=== PATIENT | female | born 1970 | race Caucasian/White ===

== ENCOUNTER 2017-08-18 17:24 | Emergency (ER) | payer OTHER, MEDICARE ==
[~2017-08-18] VITALS: Ht 152.4 cm; Wt 75.0 kg
[2017-08-18] VITALS (7 sets, daily range): BP systolic 149–188; BP diastolic 89–108; PULSE 105–122; RESP 14–20; TEMP 98.4; O2SAT 92–98
[2017-08-18] MEDS ORDERED: OMEP20TA93 PO ×2 (17:50→20:27)
[2017-08-18] MEDS ORDERED: HYDROmorphone HCL PF 1 MG/ML VIAL IV PUSH ONE (18:15)
[2017-08-18] MEDS ORDERED: ONDANSETRON HCL 4 MG/2 ML VIAL IM ONE (18:15)
[2017-08-18] MEDS ORDERED: SODIUM CHLORIDE 0.9% FLUSH 10 ML FLUSH IVF PRN (18:15)
[2017-08-18] MEDS ORDERED: SODIUM CHLOR 0.9% 1000 ML INJ 1,000 ML IV SCH (18:15)
[2017-08-18] MEDS ORDERED: ONDANSETRON ODT 4 MG TAB PO ONE (18:45)
[2017-08-18] MEDS ORDERED: HYDROmorphone HCL PF 2 MG/ML VIAL IV PUSH ONE (18:45)
--- NOTE | 2017-08-18 18:59 | PD ---
HPI Chief Complaint: GI Complaint Time Seen by Provider: 17:52 Travel History International Travel<30 days: No Contact w/Intl Traveler<30days: No Traveled to known affect area: No History of Present Illness HPI 47 YO F with PMH of GERD, cyclical vomiting syndrome, anxiety, depression presents to the ED for evaluation of 2 day history of epigastric abdominal pain , nausea and vomiting. Pain is rated 10/10, sharp, no alleviating or exacerbating factors reported. Pain radiates to the back. Gradual onset. Patient states this pain is similar to previous episodes of cyclical vomiting syndrome. She does not have any antiemetics at home. She denies chest pain, palpitations, shortness of breath, changes in bowel habits, dysuria. Mother is at bedside and states the patient's been seen by several doctors in the area. She states that the patient recently underwent Botox injections of the esophagus. Neither the patient or her mother is able to give a detailed description or definite diagnosis for the patient's condition. PFSH Past Medical History Anxiety: Yes Depression: Yes GERD: Yes ?: Not Past Surgical History Abdominal Surgery: Yes Hysterectomy: Yes Other Surgery: Yes (breast reduction) Social History Alcohol Use: No Tobacco Use: No Substance Use: No Allergies-Medications (Allergen,Severity, Reaction): Coded Allergies: amoxicillin (Verified Allergy, Unknown, 08/18/17) lidocaine (Verified Allergy, Unknown, 08/18/17) Reported Meds & Prescriptions Reported Meds & Active Scripts Active Reported Miralax Powder (Polyethylene Glycol 3350 Powder) 17 Gm Powd 17 Gm PO DAILY Mix and dissolve one measuring cap-ful (17 grams) in water or juice. Celexa (Citalopram Hydrobromide) 10 Mg Tab 10 Mg PO DAILY Vitamin D3 (Cholecalciferol) 1,000 Unit Tab 1,000 Units PO DAILY Clozapine 100 Mg Tab 100 Mg PO TID Docusate Sodium 100 Mg Cap 100 Mg PO BID PRN Citalopram (Citalopram Hydrobromide) 20 Mg Tab 20 Mg PO DAILY Omeprazole 20 Mg Tab 20 Mg PO DAILY Review of Systems Except as stated in HPI: all other systems reviewed are Neg Physical Exam Narrative GENERAL: Well-nourished, well-developed ill-appearing white female no acute distress. SKIN: Focused skin assessment warm/dry. HEAD: Normocephalic. EYES: No scleral icterus. No injection or drainage. NECK: Supple, trachea midline. No JVD or lymphadenopathy. CARDIOVASCULAR: Regular rate and rhythm without murmurs, gallops, or rubs. RESPIRATORY: Breath sounds equal bilaterally. No accessory muscle use. GASTROINTESTINAL: Abdomen soft, nondistended. No palpable hepatosplenomegaly. Tender to palpation in the epigastric area. Active bowel sounds. MUSCULOSKELETAL: No cyanosis, or edema. BACK: Nontender without obvious deformity. No CVA tenderness. Data Data Last Documented VS Vital Signs Date Time Temp Pulse Resp B/P (MAP) Pulse Ox O2 Delivery O2 Flow Rate FiO2 08/19/17 02:34 08/19/17 02:20 107 16 98 Room Air 08/18/17 17:30 98.4 Orders Orders Complete Blood Count With Diff (08/18/17 18:15) Comprehensive Metabolic Panel (08/18/17 18:15) Lipase (08/18/17 18:15) Prothrombin Time / Inr (Pt) (08/18/17 18:15) Act Partial Throm Time (Ptt) (08/18/17 18:15) Alcohol (Ethanol) (08/18/17 18:15) Urinalysis - C+S If Indicated (08/18/17 18:15) Type And Screen (08/18/17 18:15) Ecg Monitoring (08/18/17 18:15) Iv Access Insert/Monitor (08/18/17 18:15) Oximetry (08/18/17 18:15) Sodium Chlor 0.9% 1000 Ml Inj (Ns 1000 M (08/18/17 18:15) Sodium Chloride 0.9% Flush (Ns Flush) (08/18/17 18:15) Electrocardiogram (08/18/17 ) Ammonia (08/18/17 18:15) Drug Screen, Random Urine (08/18/17 18:22) Troponin I (08/18/17 19:55) Ckmb (Isoenzyme) Profile (08/18/17 19:55) Lactic Acid (08/18/17 20:24) CKMB (08/18/17 18:45) CKMB% (08/18/17 18:45) Sodium Chlor 0.9% 1000 Ml Inj (Ns 1000 M (08/18/17 21:15) Orthostatic Vital Signs (08/18/17 22:02) Sodium Chlor 0.9% 1000 Ml Inj (Ns 1000 M (08/18/17 22:45) Metoclopramide Inj (Reglan Inj) (08/18/17 22:45) Lorazepam Inj (Ativan Inj) (08/19/17 00:45) Clozapine (Clozaril) (08/19/17 00:45) Ed Discharge Order (08/19/17 02:31) Labs Laboratory Tests Test 08/18/17 18:22 08/18/17 18:45 08/18/17 21:08 Urine Opiates Screen NEG Urine Barbiturates Screen NEG Urine Amphetamines Screen NEG Urine Benzodiazepines Screen NEG Urine Cocaine Screen NEG Urine Cannabinoids Screen NEG White Blood Count 12.3 TH/MM3 Red Blood Count 5.49 MIL/MM3 Hemoglobin 14.6 GM/DL Hematocrit 43.9 % Mean Corpuscular Volume 80.0 FL Mean Corpuscular Hemoglobin 26.7 PG Mean Corpuscular Hemoglobin Concent 33.3 % Red Cell Distribution Width 14.2 % Platelet Count 330 TH/MM3 Mean Platelet Volume 9.1 FL Neutrophils (%) (Auto) 86.1 % Lymphocytes (%) (Auto) 8.2 % Monocytes (%) (Auto) 5.2 % Eosinophils (%) (Auto) 0.0 % Basophils (%) (Auto) 0.5 % Neutrophils # (Auto) 10.6 TH/MM3 Lymphocytes # (Auto) 1.0 TH/MM3 Monocytes # (Auto) 0.6 TH/MM3 Eosinophils # (Auto) 0.0 TH/MM3 Basophils # (Auto) 0.1 TH/MM3 CBC Comment DIFF FINAL Differential Comment Prothrombin Time 10.6 SEC Prothromb Time International Ratio 1.0 RATIO Activated Partial Thromboplast Time 23.1 SEC Urine Color YELLOW Urine Turbidity TURBID Urine pH 8.0 Urine Specific [place] 1.019 Urine Protein 100 mg/dL Urine Glucose (UA) 50 mg/dL Urine Ketones 20 mg/dL Urine Occult Blood NEG Urine Nitrite NEG Urine Bilirubin NEG Urine Urobilinogen LESS THAN 2 mg/dL Urine Leukocyte Esterase NEG Urine Amorphous Sediment MOD Urine Hyaline Casts 6 /lpf Urine Granular Casts 6 /lpf Urine Mucus MOD /lpf Microscopic Urinalysis Comment CULT NOT INDICATED Blood Urea Nitrogen 16 MG/DL Creatinine 1.34 MG/DL Random Glucose 194 MG/DL Total Protein 8.6 GM/DL Albumin 4.5 GM/DL Calcium Level 11.1 MG/DL Alkaline Phosphatase 160 U/L Aspartate Amino Transf (AST/SGOT) 29 U/L Alanine Aminotransferase (ALT/SGPT) 27 U/L Total Bilirubin 0.5 MG/DL Sodium Level 142 MEQ/L Potassium Level 3.5 MEQ/L Chloride Level 103 MEQ/L Carbon Dioxide Level 27.7 MEQ/L Anion Gap 11 MEQ/L Estimat Glomerular Filtration Rate 42 ML/MIN Ammonia 21 MCMOL/L Total Creatine Kinase 1172 U/L Creatine Kinase MB LESS THAN 0.5 NG/ML Creatine Kinase MB % 0.0 % Troponin I LESS THAN 0.02 NG/ML Lipase 83 U/L Ethyl Alcohol Level LESS THAN 3 MG/DL Lactic Acid Level 1.0 mmol/L MDM Medical Decision Making Medical Screen Exam Complete: Yes Emergency Medical Condition: Yes Differential Diagnosis GERD versus cyclical vomiting versus GI bleed versus esophageal varices versus dehydration versus anemia versus metabolic derangement versus other Narrative Course 47-year-old female with PMH of GERD, cyclical vomiting presents the ED for evaluation of nausea, vomiting, epigastric pain times 24 hours. Symptoms similar to previous episodes. The patient is tachycardic and hypertensive on presentation. On exam she has some epigastric tenderness and is retching. IV was established. She was administered 2 L normal saline, 1 mg Dilaudid, 4 mg ODT Zofran. I reviewed [facility]. Patient has no narcotic prescriptions in the last year. EKG rate 107, sinus tachycardia. AR interval 123, QRS 97, QTc 333 ms. Normal axis. No acute ST changes. Reviewed by Dr. Macias. Cardiac enzymes negative x1. CBC: WBC 12.3. Hemoglobin 14.6. INR: 1.0. CMP: BUN 16, creatinine 1.34. Glucose 194. Calcium 11.1. CK 1172. UA: No culture indicated. Tox screen: Negative. Alcohol less than 3. No further episodes of vomiting while in the ED. Patient remains tachycardic and hypertensive. Discussed the case with Dr. Macias. He recommended additional liter of fluid. Patient signed out to Dr. Macias at end of shift. Please see his note for disposition. [facility] Point of Care Internal Pos. & Neg. Controls: Passed Gastric Specimen Occult Blood: Positive Diagnosis Primary Impression: Cyclical vomiting with nausea Qualified Codes: G43.A0 - Cyclical vomiting, not intractable Referrals: [facility] Additional Instructions: Rest, hydrate. Eat a bland diet for the next few days and gradually reintroduce new foods. Follow up with the [facility] for further evaluation. Return to the ED for any urgent or emergent medical condition. Med/Other Pt SpecificInfo: Prescription(s) given Disposition: 01 DISCHARGE HOME Condition: Stable Molly Mirza Aug 18, 2017 18:59
[2017-08-18] MEDS ORDERED: METOCLOPRAMIDE HCL 10 MG/2 ML VIAL IV PUSH ONE (19:00)
[2017-08-18 19:01] LABS: AUTOMATED NEUTROPHIL # 10.6 TH/MM3 (1.8-7.7); BASOPHIL # 0.1 TH/MM3 (0-0.2); BASOPHIL % 0.5 % (0.0-2.0); HEMATOCRIT 43.9 % (35.0-46.0); HEMOGLOBIN 14.6 GM/DL (11.6-15.3); LYMPH % 8.2 % (9.0-44.0); MEAN CORPUSCULAR HEMOGLOBIN 26.7 PG (27.0-34.0); MEAN CORPUSCULAR HGB CONC 33.3 % (32.0-36.0); MEAN PLATELET VOLUME 9.1 FL (7.0-11.0); MONO % 5.2 % (0.0-8.0); MONOCYTE # 0.6 TH/MM3 (0-0.9); NEUT % 86.1 % (16.0-70.0); PLATELET COUNT 330 TH/MM3 (150-450); RED BLOOD COUNT 5.49 MIL/MM3 (4.00-5.30); RED CELL DISTRIBUTION WIDTH 14.2 % (11.6-17.2); WHITE BLOOD COUNT 12.3 TH/MM3 (4.0-11.0)
[2017-08-18 19:10] LABS: PROTHROMBIN TIME - PATIENT 10.6 SEC (9.8-11.6)
[2017-08-18 19:16] LABS: ALBUMIN 4.5 GM/DL (3.4-5.0); AST (GOT) 29 U/L (15-37); BICARBONATE 27.7 MEQ/L (21.0-32.0); BLOOD UREA NITROGEN 16 MG/DL (7-18); CALCIUM 11.1 MG/DL (8.5-10.1); CHLORIDE 103 MEQ/L (98-107); CREATININE 1.34 MG/DL (0.50-1.00); GLOMERULAR FILTRATION RATE 42 ML/MIN (>89); GLUCOSE,RANDOM 194 MG/DL (74-106); SODIUM (NA) 142 MEQ/L (136-145)
[2017-08-18 19:17] LABS: ALT (GPT) 27 U/L (10-53)
[2017-08-18 19:19] LABS: ALKALINE PHOSPHATASE 160 U/L (45-117); TOTAL BILIRUBIN ADULT 0.5 MG/DL (0.2-1.0); TOTAL PROTEIN 8.6 GM/DL (6.4-8.2)
[2017-08-18 19:34] LABS: AMORPHOUS SEDIMENT, URINE MOD; BILIRUBIN, URINE NEG (NEG); BLOOD, URINE NEG (NEG); GLUCOSE,URINE 50 mg/dL (NEG); HYALINE CAST, URINE 6 /lpf (RARE); KETONE, URINE 20 mg/dL (NEG); MUCUS URINE MOD /lpf (OCC); NITRITE,URINE NEG (NEG); URINE LEUKOCYTE ESTERASE NEG (NEG)
[2017-08-18 19:38] LABS: URINE COLOR YELLOW (YELLW/STRAW)
[2017-08-18] MEDS ORDERED: CLOZ100T3 PO (20:27)
[2017-08-18] MEDS ORDERED: DOCU100C15 PO (20:27)
[2017-08-18] MEDS ORDERED: VITA100018 PO (20:27)
[2017-08-18] MEDS ORDERED: CITA20TA4 PO (20:27)
[2017-08-18] MEDS ORDERED: MIRA3350 PO (20:27)
[2017-08-18] MEDS ORDERED: CELE10TA PO (20:27)
[2017-08-18 20:53] LABS: TROPONIN I LESS THAN 0.02 NG/ML (0.02-0.05)
[2017-08-18] MEDS ORDERED: SODIUM CHLOR 0.9% 1000 ML INJ 1,000 ML IV ONE ×2 (21:15→22:45)
[2017-08-18] MEDS ORDERED: METOCLOPRAMIDE INJ 10 MG in SODIUM CHLORIDE 0.9% INJ 50 ML IV ONE (22:45)
[2017-08-19] MEDS ORDERED: LORazepam 2 MG/ML VIAL IV PUSH ONE (00:45)
[2017-08-19] MEDS ORDERED: cloZAPine 100 MG TAB PO ONE (00:45)
[2017-08-19 00:51] VITALS: BP 182/91; PULSE 110; RESP 20; O2SAT 95
[2017-08-19 02:20] VITALS: BP 133/77; PULSE 107; RESP 16; O2SAT 98
--- NOTE | 2017-08-19 17:45 | EKG ---
Date Performed: 08/18/2017 Time Performed: 19:09:21 PTAGE: 47 years EKG: SINUS TACHYCARDIA NONSPECIFIC ST & T-WAVE ABNORMALITY ABNORMAL RHYTHM ECG NO PREVIOUS TRACING DOCTOR: Cindi Carrington Interpretating Date/Time 08/19/2017 17:43:21
== END 2017-08-19 02:45 | disposition home or self-care (01) ==
LOC: NEPE 17:24
DX: G43.A0 Cyclical vomiting, in migraine, not intractable (principal); R10.13 Epigastric pain; R00.0 Tachycardia, unspecified; R03.0 Elevated blood-pressure reading, without diagnosis of hypertension; K21.9 Gastro-esophageal reflux disease without esophagitis; F32.9 Major depressive disorder, single episode, unspecified; F41.9 Anxiety disorder, unspecified; Z88.0 Allergy status to penicillin; Z79.899 Other long term (current) drug therapy
CPT/HCPCS: 80053; 80307; 81001; 82140; 82550; 82552; 83605; 83690; 84484; 85025; 85610; 85730; 86850; 86900; 86901; 93005; 96361; 96365; 96375; 99284; J2060; J2765; J7030

== ENCOUNTER 2017-08-19 11:44 | Emergency (ER) | payer OTHER, MEDICARE ==
[~2017-08-19] VITALS: Ht 165.1 cm; Wt 75.0 kg
[~2017-08-19 11:44] MED LIST: CELE10TA PO; CITA20TA4 PO; CLOZ100T3 PO; DOCU100C15 PO; MIRA3350 PO; OMEP20TA93 PO; VITA100018 PO
[2017-08-19 11:56] VITALS: BP 205/127; PULSE 118; RESP 15; TEMP 99.3; O2SAT 95
[2017-08-19 12:10] VITALS: BP 197/111
[2017-08-19] MEDS ORDERED: SODIUM CHLORIDE 0.9% FLUSH 10 ML FLUSH IV FLUSH PRN (13:15)
[2017-08-19] MEDS ORDERED: LORazepam 2 MG/ML VIAL IV PUSH ONE (13:15)
[2017-08-19] MEDS ORDERED: METOCLOPRAMIDE HCL 10 MG/2 ML VIAL IV PUSH ONE (13:15)
--- NOTE | 2017-08-19 13:16 | PD ---
HPI Chief Complaint: GI Complaint Time Seen by Provider: 13:01 Travel History International Travel<30 days: No Contact w/Intl Traveler<30days: No Traveled to known affect area: No History of Present Illness HPI Patient is a 47 year old female with a history of anxiety, depression and cyclical vomiting syndrome presents to the ER for evaluation of continued n/v since discharge from the ER last night. patient is accompanied by mother and patient defers her history to her mother. Mom states that this has been going on and off for years and [facility] but nothing seems to work and she has no unifying diagnosis. States that yesterday after leaving she continues to have intermittent nb/nb vomiting without abdominal pain. She has also been seen at other outside ER's and has had several CT scans and ultimately discharged from those ER's. Mom states she has not been happy with those ER's and thats why she came here. Patient is also on psychiatric medicines and mom is concerned because she hasn't been able to take these if it is ok to start them again. She does not know who prescribes the medications to her. Review of the records last night show she received multiple anti-emetic medications, multiple boluses of NS and ultimately discharged. No imaging obtained. PFSH Past Medical History Anxiety: Yes Depression: Yes GERD: Yes ?: Not Past Surgical History Abdominal Surgery: Yes Hysterectomy: Yes Other Surgery: Yes (breast reduction) Social History Alcohol Use: No Tobacco Use: No Substance Use: No Allergies-Medications (Allergen,Severity, Reaction): Coded Allergies: amoxicillin (Verified Allergy, Unknown, 08/18/17) lidocaine (Verified Allergy, Unknown, 08/18/17) Reported Meds & Prescriptions Reported Meds & Active Scripts Active Reported Miralax Powder (Polyethylene Glycol 3350 Powder) 17 Gm Powd 17 Gm PO DAILY Mix and dissolve one measuring cap-ful (17 grams) in water or juice. Celexa (Citalopram Hydrobromide) 10 Mg Tab 10 Mg PO DAILY Vitamin D3 (Cholecalciferol) 1,000 Unit Tab 1,000 Units PO DAILY Clozapine 100 Mg Tab 100 Mg PO TID Docusate Sodium 100 Mg Cap 100 Mg PO BID PRN Citalopram (Citalopram Hydrobromide) 20 Mg Tab 20 Mg PO DAILY Omeprazole 20 Mg Tab 20 Mg PO DAILY Review of Systems Except as stated in HPI: all other systems reviewed are Neg Physical Exam Narrative GENERAL: WD/WN Obese, in no obvious distress. I witnessed one small volume emesis in the ER. Non-bloody. SKIN: Warm and dry. HEAD: Atraumatic. Normocephalic. EYES: Pupils equal and round. No scleral icterus. No injection or drainage. ENT: No nasal bleeding or discharge. Mucous membranes pink and moist. NECK: Trachea midline. No JVD. CARDIOVASCULAR: Regular rate and rhythm. RESPIRATORY: No accessory muscle use. Clear to auscultation. Breath sounds equal bilaterally. GASTROINTESTINAL: Abdomen soft, non-tender, nondistended. Hepatic and splenic margins not palpable. MUSCULOSKELETAL: Extremities without clubbing, cyanosis, or edema. No obvious deformities. NEUROLOGICAL: Awake and alert. No obvious cranial nerve deficits. Motor grossly within normal limits. Five out of 5 muscle strength in the arms and legs. Normal speech. PSYCHIATRIC: Appropriate mood and affect; insight and judgment normal. Data Data Last Documented VS Vital Signs Date Time Temp Pulse Resp B/P (MAP) Pulse Ox O2 Delivery O2 Flow Rate FiO2 08/19/17 15:27 08/19/17 11:56 99.3 118 15 95 Orders Orders Iv Access Insert/Monitor (08/19/17 13:14) Ecg Monitoring (08/19/17 13:14) Oximetry (08/19/17 13:14) Sodium Chloride 0.9% Flush (Ns Flush) (08/19/17 13:15) Complete Blood Count With Diff (08/19/17 13:15) Basic Metabolic Panel (Bmp) (08/19/17 13:15) Metoclopramide Inj (Reglan Inj) (08/19/17 13:15) Lorazepam Inj (Ativan Inj) (08/19/17 13:15) Abdomen, Upright Only (08/19/17 ) Ed Discharge Order (08/19/17 15:17) Labs Laboratory Tests Test 08/19/17 14:12 White Blood Count 13.3 TH/MM3 Red Blood Count 4.73 MIL/MM3 Hemoglobin 12.9 GM/DL Hematocrit 39.0 % Mean Corpuscular Volume 82.4 FL Mean Corpuscular Hemoglobin 27.2 PG Mean Corpuscular Hemoglobin Concent 33.0 % Red Cell Distribution Width 14.3 % Platelet Count 255 TH/MM3 Mean Platelet Volume 8.4 FL Neutrophils (%) (Auto) 87.0 % Lymphocytes (%) (Auto) 6.7 % Monocytes (%) (Auto) 6.1 % Eosinophils (%) (Auto) 0.0 % Basophils (%) (Auto) 0.2 % Neutrophils # (Auto) 11.6 TH/MM3 Lymphocytes # (Auto) 0.9 TH/MM3 Monocytes # (Auto) 0.8 TH/MM3 Eosinophils # (Auto) 0.0 TH/MM3 Basophils # (Auto) 0.0 TH/MM3 CBC Comment DIFF FINAL Differential Comment Blood Urea Nitrogen 13 MG/DL Creatinine 0.90 MG/DL Random Glucose 137 MG/DL Calcium Level 10.0 MG/DL Sodium Level 146 MEQ/L Potassium Level 3.1 MEQ/L Chloride Level 110 MEQ/L Carbon Dioxide Level 27.3 MEQ/L Anion Gap 9 MEQ/L Estimat Glomerular Filtration Rate 67 ML/MIN MDM Medical Decision Making Medical Screen Exam Complete: Yes Emergency Medical Condition: Yes Differential Diagnosis Gastritis, gastroenteritis, electrolyte abnormality, chronic n/v. Narrative Course Patient roomed in the ER. I recommended CT scan as mom is concerned of "something must be blocked in there". Mom states she's had so many CT scans in the past and does not want another. Patient defers. Upright abdomen shows no obvious obstruction. Labs reassuring. Minimally tachycardic. She was medicated and after medication has not had any additional vomiting in ER. Mom is uneasy about taking patient home. It seems as though this patient's care has been fragmented between several different hospital systems. I offered observation status for intractible n/v. Discussed could consider GI consult but i would defer this to admitting service. She also requested psychiatric evaluation for medication management and i think this is a outpatient matter but if she wanted this could also be done as observation status. After a lengthy discussion mother would rather follow up with the PCP tomorrow as they have an appoitnment. I think this is reasonable and mother is reliable to bring patient back/to nearest ER should symptoms recur. Diagnosis Primary Impression: Nausea & vomiting Additional Instructions: Please follow up with your regular physician tomorrow and with your GI specialist by phone [facility]. You are always welcome to return to the ER at anytime you feel there is a medical emergency. If she has persistent nausea and vomiting at home return to the ER. Disposition: 01 DISCHARGE HOME Condition: Stable Wei Rocha MD Aug 19, 2017 13:16
--- NOTE | 2017-08-19 14:23 | RADRPT ---
EXAM DATE: 08/19/2017 1:39 PM EDT AGE/SEX: 47 years / Female INDICATIONS: Evaluate for obstruction CLINICAL DATA: This is the patient's initial encounter. Patient reports that signs and symptoms have been present for 3 days and indicates a pain score of 9/10. MEDICAL/SURGICAL HISTORY: . Hysterectomy. Gastrostomy COMPARISON: No prior exams available for comparison. FINDINGS: Single upright view of the abdomen demonstrates air within bowel in a nonobstructive pattern. Right l obe of the liver appears enlarged. No concerning calcifications are present. Nonspecific density is p resent within the left pelvis but may represent vertebral clips. No abnormal mass effect is appreciat ed. No free air or significant air-fluid level is present. Lung bases are clear. No acute osseous abn ormality is identified. CONCLUSION: 1. No acute abdominal abnormality is identified. There are no findings to indicate obstruction. 2. Nonspecific densities in the left pelvis. These may represent surgical clips related to prior janice olman. 3. Suspected hepatomegaly. Electronically signed by: Andreas Roy MD 08/19/2017 2:22 PM EDT
[2017-08-19 14:29] LABS: AUTOMATED NEUTROPHIL # 11.6 TH/MM3 (1.8-7.7); BASOPHIL % 0.2 % (0.0-2.0); HEMOGLOBIN 12.9 GM/DL (11.6-15.3); LYMPH % 6.7 % (9.0-44.0); LYMPHOCYTE # 0.9 TH/MM3 (1.0-4.8); MEAN CELL VOLUME 82.4 FL (80.0-100.0); MEAN CORPUSCULAR HEMOGLOBIN 27.2 PG (27.0-34.0); MEAN PLATELET VOLUME 8.4 FL (7.0-11.0); MONO % 6.1 % (0.0-8.0); MONOCYTE # 0.8 TH/MM3 (0-0.9); PLATELET COUNT 255 TH/MM3 (150-450); RED BLOOD COUNT 4.73 MIL/MM3 (4.00-5.30); RED CELL DISTRIBUTION WIDTH 14.3 % (11.6-17.2); WHITE BLOOD COUNT 13.3 TH/MM3 (4.0-11.0)
[2017-08-19 14:54] LABS: BICARBONATE 27.3 MEQ/L (21.0-32.0); CREATININE 0.9 MG/DL (0.50-1.00)
== END 2017-08-19 15:43 | disposition home or self-care (01) ==
LOC: NEPD 11:44
DX: R11.2 Nausea with vomiting, unspecified (principal); F41.9 Anxiety disorder, unspecified; F32.9 Major depressive disorder, single episode, unspecified; Z88.0 Allergy status to penicillin
CPT/HCPCS: 74018; 80048; 85025; 96372; 99284; J2060; J2765